=== PATIENT | female | born 1945 | race Caucasian/White ===

== ENCOUNTER 2019-12-09 04:27 | Inpatient (IN) | payer MEDICARE, SELFPAY ==
[2019-12-09] VITALS (20 sets, daily range): BP systolic 107–184; BP diastolic 56–88; PULSE 58–78; RESP 10–22; TEMP 36.1–37.1; O2SAT 97–100; BMI 43.7
--- NOTE | 2019-12-09 | ECHO_ITS ---
Patient Info Name: Tracey Beasley Age: 74 years : 1945 Gender: Female Ht: 61 in Wt: 231 lbs BSA: 2.19 m2 HR: 68 bpm BP: 147 / 60 mmHg Heart Rhythm: Sinus Rhythm Technical Quality: Good Exam Date: 12/09/2019 10:31 AM Exam Location: [facility] Pulmonary Exam Room: [facility] Patient Status: Inpatient Admit Date: 12/09/2019 Staff Ordering Physician: Van Guzman MD Regional Director: Velma Madden RDCS Attending Provider: Van Guzman MD Exam Type: CA echo doppler color flow Study Info Indications - chest pain sob ami s/p cath Complete two-dimensional, color flow and Doppler transthoracic echocardiogram is performed. Summary 1. Left ventricular systolic function is normal, estimated at 60-65%. 2. Left ventricular septal wall motion is grossly normal, however endocardial definition is limited. 3. Right ventricular chamber dimension is normal. 4. Left atrial chamber dimension is severely enlarged. 5. There is mild to moderate mitral valve regurgitation. 6. The mitral valve annulus is severely calcified. 7. Moderate pulmonary hypertension, estimated pulmonary arterial systolic pressure is 46 mmHg. Left Ventricle Left ventricular chamber dimension is normal. Left ventricular systolic function is normal, estimated at 60-65%. There is no increased left ventricular wall thickness. Left ventricular septal wall motion is grossly normal, however endocardial definition is limited. The left ventricular diastolic function is abnormal. Right Ventricle Right ventricular chamber dimension is normal. Right ventricular systolic function is normal. Left Atria Left atrial chamber dimension is severely enlarged. Right Atria Right atrial chamber dimension is enlarged. Aortic Valve The aortic valve is trileaflet. There is no aortic valve sclerosis. There is no aortic valve stenosis. There is no aortic valve regurgitation. Pulmonic Valve The pulmonic valve is normal. There is no pulmonic valve stenosis. There is no pulmonic regurgitation. Mitral Valve The mitral valve has thickened leaflets. There is no mitral valve stenosis. There is mild to moderate mitral valve regurgitation. The mitral valve annulus is severely calcified. Tricuspid Valve The tricuspid valve leaflets are normal. There is no significant tricuspid valve stenosis. There is mild tricuspid valve regurgitation. Moderate pulmonary hypertension, estimated pulmonary arterial systolic pressure is 46 mmHg. Pericardium/Pleural There is no pericardial effusion. Inferior Vena Cava Normal inferior vena cava with >50% collapse upon inspiration consistent with normal right atrial pressure, 5 mmHg. Aorta The aortic root size at the sinus of Valsalva is normal. The prox ascending aorta size is normal. Left Ventricular Outflow Tract Name Value Normal LVOT 2D LVOT Diameter 2.0 cm LVOT Doppler LVOT Peak Gradient 6 mmHg LVOT Mean Gradient 4 mmHg LVOT VTI 27 cm LVOT VTI/AV VTI Ratio 0.8 LVOT
--- NOTE | ~2019-12-09 | XR_ITS ---
EXAMINATION: XR chest 1V portable DATE: 12/09/2019 04:48 INDICATION: Chest pain radiating to left shoulder. TECHNIQUE: A single frontal view of the chest was obtained. COMPARISON: Chest 2 views 12/24/2016, CT abdomen and pelvis 02/26/2019 FINDINGS: The chest demonstrates clear lungs without pneumonia, pleural effusion, or pneumothorax. Th e heart size is normal. IMPRESSION: 1. No acute cardiopulmonary disease. Reviewed, dictated and finalized at location A. R MACHINE HELPER
--- NOTE | 2019-12-09 04:35 | PC.NURSE ---
Pt took 4 81mg aspirin at home when symptoms started.
--- NOTE | 2019-12-09 04:37 | ED.CHESTPAIN ---
HPI - Chest Pain General Chief Complaint: Chest Pain Stated Complaint: chest pain History of Present Illness HPI narrative: Awoke from sleep around 0315 this morning with severe pain in the right shoulder radiating into the chest. It was pressure like pain. It was associated with SOB. She has had a previous UT which caused similar symptoms. SHe took 325 of aspirin at home prior to calling EMS. EMS obtained an EKG with ST elevations in the inferior leads and called a STEMI. On arrival to the ED the EKG was repeated. There was no longer significant ST elevation. The EKG was discussed with the on-call interventionalist. He suggested not taking the patient to the filling station laborer until he is able to evaluate her. Related Data Allergies Allergy/AdvReac Type Severity Reaction Status Date / Time Cephalosporins Allergy Severe Rash----KEF Unverified 12/24/16 19:04 DYLAN morphine Allergy Severe ITCHEY Verified 12/24/16 19:04 FLUSHED SKIN cephalexin Allergy Unknown Verified 08/28/19 14:55 Sulfa (Sulfonamide Allergy Unknown Verified 08/28/19 14:55 Antibiotics) Review of Systems Review of Systems: All systems reviewed & are unremarkable except as noted in HPI and below Constitutional: Constitutional: Denies fever(s) Eyes: Eyes: Denies change in vision Cardiovascular: Cardiovascular: Reports chest pain and Reports radiating jaw, neck or arm pain Respiratory: Respiratory: Reports dyspnea Gastrointestinal: Gastrointestinal: Denies abdominal pain and Denies nausea Neurologic: Denies dizziness PMFSH Past Medical History Medical History (Updated 12/09/19 @ 05:50 by Mandeep Flores MD) Myocardial infarction Family History Family History Other Carcinoma of colon Cerebrovascular accident Diabetes mellitus Family history of coronary artery disease Family history of malignant neoplasm of breast in first degree relative Hypertension Social History Social History Smoking status: Never smoker Second hand tobacco smoke exposure: No Alcohol intake: never Gender identity (if verbalized by the patient): Female Exam Const: General: no acute distress and alert Nutritional Appearance: obese Orientation/consciousness: patient oriented x3 HENMT: Head: normal to inspection Resp: Effort & Inspection: normal respiratory effort Auscultation: clear to auscultation bilaterally Cardio: Rate: regular rate Rhythm: regular rhythm GI: Other: Soft NT Skin: General skin exam: normal color Rashes: no rashes Neuro: General: patient oriented x3 Speech: normal speech and Abnormal speech present Course Reevaluation(s) Reevaluation #1: The interventionalist has seen the patient and will plan to take her to the filling station laborer now. Date: 12/09/19 Time: 05:48 Vital Signs Vital signs: Vital Signs Temperature 36.7 C 12/09/19 04:29 Pulse Rate 74 12/09/19 04:29 Respiratory Rate 16 12/09/19 04:29 Blood Pressure 184/79 H 12/09/19 04:29 Pulse Oximetry 100 12/09/19 04:29 Temperature 36.7 C 12/09/19 04:29 Pulse Rate 69 12/09/19 05:45 Respiratory Rate 18 12/09/19 05:45 Blood Pressure 147/60 H 12/09/19 05:45 Pulse Oximetry 98 12/09/19 05:45 MDM - Chest Pain Lab Data Result diagrams: 12/09/19 04:49 12/09/19 04:49 Labs: Lab Results 12/09/19 12/09/19 12/09/19 Range/Units 04:49 04:49 04:49 WBC 9.6 (4.5-10.0) K/mm3 RBC 5.22 (4.2-5.4) M/mm3 Hgb 12.9 (12.0-15.0) g/dL Hct 41.6 (37.0-47.0) % MCV 79.7 L (80-100) fl MCH 24.7 L (26-34) pg MCHC 31.0 L (32-36) g/dl RDW 15.3 H (11.5-14.5) % Plt Count 189 (150-375) k/mm3 MPV 10.9 H (7.4-10.4) fl Immature Gran % (Auto) 0.6 H (0-0.5) % Neut % (Auto) 50.9 (45.5-73.1) % Lymph % (Auto) 37.4 (18.3-44.2) % [place] % (Auto) 8.7 H (2.6-8.5)
--- NOTE | 2019-12-09 04:38 | ECG_ITS ---
Measurements Intervals [place] Rate: 63 P: -18 VT: 125 QRS: -4 QRSD: 81 T: 16 QT: 380 QTc: 392 Interpretive Statements SINUS RHYTHM SUBTLE INFERIOR ST ELEVATION MYOCARDIAL INFARCT- ACUTE BASELINE ARTIFACT- I, II, III, AVR, AVL, AVF ABNORMAL ECG Electronically Signed On 12-09-2019 8:27:59 BILINGUAL ELEMENTARY SCHOOL TEACHER by Armando Francis D.O.
[2019-12-09 04:58] LABS: Basophils Percent Auto 0.4 % (0.2-1.2); Eosinophils Absolute Auto 0.2 K/mm3 (0-0.3); Hematocrit 41.6 % (37.0-47.0); Hemoglobin 12.9 g/dL (12.0-15.0); Immature Granulocyte Absolute 0.06 K/mm3 (0.00-0.031); Immature Granulocyte Percent A 0.6 % (0-0.5); Lymphocytes Absolute Auto 3.58 K/mm3 (0.9-3.2); Lymphocytes Percent Auto 37.4 % (18.3-44.2); Mean Corpuscular Hemoglobin 24.7 pg (26-34); Mean Corpuscular Volume 79.7 fl (80-100); Mean Platelet Volume 10.9 fl (7.4-10.4); Monocytes Absolute Auto 0.8 K/mm3 (0.1-0.6); Monocytes Percent Auto 8.7 % (2.6-8.5); Neutrophils Absolute Auto 4.9 K/mm3 (1.3-6.7); Neutrophils Percent Auto 50.9 % (45.5-73.1); Platelet Count Result 189 k/mm3 (150-375); Red Blood Count 5.22 M/mm3 (4.2-5.4); Red Cell Distribution Width 15.3 % (11.5-14.5); White Blood Count 9.6 K/mm3 (4.5-10.0)
[2019-12-09] MEDS: NITROGLYCERIN SL 0.4 MG TABLET SUBLINGUAL (05:03)
--- NOTE | 2019-12-09 05:06 | PC.NURSE ---
Director Medicaid RN here at this time. Pt groin shaved and pads aplied to pt chest. Pt resting comfortably.
[2019-12-09 05:12] LABS: Blood Urea Nitrogen 30 mg/dL (7-17); Calcium 9.1 mg/dL (8.4-10.2); Carbon Dioxide 22 mmol/L (22-30); Chloride 101 mmol/L (98-107); Estimated Glomerular Filt Rate > 60; Glucose 128 mg/dL (65-105); Potassium 3.9 mmol/L (3.4-5.0); Sodium 134 mmol/L (137-145)
[2019-12-09 05:21] LABS: INR 0.9; Partial Thromboplastin Time 26.7 SECONDS (22.3-36.8); Prothrombin Time 11.9 Seconds (11.1-14.7)
[2019-12-09 05:32] LABS: Troponin I 0.122 ng/mL (0.000-0.034)
--- NOTE | 2019-12-09 05:45 | PC.NURSE ---
Filter Tank Tender Helper Head at bedside. States they will take her to dental lab technician. Pt and pt in agreement.
--- NOTE | 2019-12-09 05:59 | PM.CNCAR ---
Assessment and Plan Additional Plan Acute chest pain, NSTEMI, EKG with ST depression in ant leads and minimal elevation in INF leads, improved with NTG but still residual mild pain, giving dynamic EKG changes, decision to proceed with [facility], plan Heparin, ASA, Emergency [facility] History of Present Illness History of Present Illness Consult date/time: 12/09/19 05:59 Consult reason: chest pain Reason For Visit: chest pain Narrative: Acute left side pressure like chest pain, radiates to left shoulder, started at 3:15 AM and was 9/10, improved partially with NTG, NO precipitating factors, associated with SOB at rest. Review of Systems Review of Systems: All systems reviewed & are unremarkable except as noted in HPI and below PMFSH Past Medical History Medical History (Updated 12/09/19 @ 05:50 by Mandeep Flores MD) Myocardial infarction Family History Family History Other Carcinoma of colon Cerebrovascular accident Diabetes mellitus Family history of coronary artery disease Family history of malignant neoplasm of breast in first degree relative Hypertension Social History Social History Smoking status: Never smoker Second hand tobacco smoke exposure: No Alcohol intake: never Gender identity (if verbalized by the patient): Female Meds Home Medications and Allergies Home Medications Medication Instructions Recorded Confirmed Type metoprolol succinate 25 mg 25 mg PO DAILY #90 tablet 10/02/19 Rx tablet,extended release 24 hr simvastatin 40 mg tablet 40 mg PO DAILY #90 tablet 10/23/19 Rx Allergies Allergy/AdvReac Type Severity Reaction Status Date / Time Cephalosporins Allergy Severe Rash----KEF Unverified 12/24/16 19:04 DYLAN morphine Allergy Severe ITCHEY Verified 12/24/16 19:04 FLUSHED SKIN cephalexin Allergy Unknown Verified 08/28/19 14:55 Sulfa (Sulfonamide Allergy Unknown Verified 08/28/19 14:55 Antibiotics) Vital Signs Vital Signs - 24 hr 12/09/19 04:29 12/09/19 04:34 12/09/19 05:32 Temperature 36.7 C Pulse Rate 74 78 58 L Respiratory Rate 16 15 Blood Pressure 184/79 H 147/60 H Pulse Oximetry 100 99 12/09/19 05:45 Temperature Pulse Rate 69 Respiratory Rate 18 Blood Pressure 147/60 H Pulse Oximetry 98 Exam Const: General: comfortable and no acute distress Other: Able to lie flat HENMT: General nose exam: Normal nares present and no epistaxis Mouth: Yes moist mucous membranes Eyes: Sclera: sclerae normal Pupils: Equal, round and reactive pupils present Neck: Neck: supple and no JVD Carotids: no bruits Resp: Auscultation: clear to auscultation bilaterally and lung sounds not diminished Other: No chest wall tenderness Cardio: Rate: regular rate Rhythm: regular rhythm Heart sounds: no gallops, no murmurs and no rubs GI: GI Palp: Yes Soft to palpation and No Tenderness to palpation present (GI) Auscultation: normal bowel sounds Skin: General skin exam: normal color, rashes and/or lesions noted and no erythema Other: Warm Neuro: Cranial nerves: Yes Equal, round and reactive pupils present Speech: normal speech Motor exam (neuro): Normal motor muscle tone present throughout Other: No obvious focal deficit or facial asymmetry Extrem: General: no edema Right upper extremity: normal capillary refill and no joint enlargement Left upper extremity: normal capillary refill and no joint enlargement Right lower extremity: normal capillary refill and no joint enlargement Left lower extremity: normal capillary refill and no joint enlargement Other: Normal capillary refills Intact distal pulses. Psych: Mental Status: mental status grossly normal Affect: normal affect Results Labs and Meds Result diagrams: 12/09/19 04:49 12/09/19 04:49 Lab results: Cardiac Enzymes 12/09/19 Range/Unit
--- NOTE | 2019-12-09 06:27 | WPDCARDPROC ---
Cardiac Cath Procedure Note Date of procedure:: 12/09/19 Performing physician:: Van Guzman MD Procedure Procedure note:: INDICATION: 1. NSTEMI HISTORY Patient presented with acute sever chest pain, EKG showed dynamic EKG changes PROCEDURES 1. Coronary angiogram 2. [facility] ACCESS SITE Rt radial PROCEDURE DETAILS Consent obtained and time out done. Access site prepped and draped in sterile fashion. Moderate sedation given with versed and fentanyl and tolerated well, versed 0.5 mg and fentanyl 50 mcg, start 6:08 and end 6:23. fully conscious at end ofprocedure. Access obtained with modified Seldinger technique with no difficulty. Coronary angiogram was recorded using TIG 4 catheter in different angels C was done with TIG4 catheter HEMODYNAMIC FINDINGS LV EDP 18 No gradient across AV ANGIOGRAPHIC FINDINGS 1. Left main: normal, free of obstructive disease, gives LAD and LCX 2. LAD: No significant disease, give one intermediate size and several small Diagonal branches 3. LCX: Non dominant and gives 3 intermediate size OM (OM2, OM3 ad OM4/LPL. OM3 is tortious and has distal 100% occlusion likely culprit lesion of NSTEMI. 4. RCA: Dominant vessel gives rPDA and rPL. RCA and its branches are free of obstructive disease COMPLICATION: None Estimated blood loss: 10 ml patient tolerated procedure well, asymptomatic at end of procedure, awake, intact pulses and following commands CONCLUSION Acute total occlusion of distal OM3 Culprit lesion of NSTEMI Otherwise non obstructive disease RECOMMENDATION DAPT for at least one year Medical managment of CAD since lesion is very distal in intermediate size tortious vessel and patient was chest pain free at end of procedure. heparin for 48 hours.
--- NOTE | 2019-12-09 06:34 | ECG_ITS ---
Measurements Intervals [place] Rate: 72 P: 39 [place]: 122 QRS: -2 QRSD: 94 T: 32 QT: 371 QTc: 408 Interpretive Statements SINUS RHYTHM SUBTLE ST ELEVATION IN INFERIOR LEADS- CONSIDER ACUTE INJURY MINIMAL ST DEPRESSION IN HIGH LATERAL LEADS ABNORMAL ECG Electronically Signed On 12-09-2019 8:29:31 SLUBBER OPERATOR by Armando Francis D.O.
--- NOTE | 2019-12-09 07:04 | ADMGEN ---
This patient, Tracey Beasley, was admitted to Intensive Care Unit-8 at 0645. Patient/family oriented to hospital policies and general routines including ID bracelet, bed and alarms, visiting hours, pain management, procedures, bathroom and other care routines, personal items, smoking policy, room service/diet, and visiting hours. Valuables list has been completed. Information on how to activate the Rapid Response Team has been discussed. Patient/Family are encouraged to report perceived risks to care and to ask questions if they do not understand what they are told or what they should do.
[2019-12-09 08:10] LABS: Basophils Percent Auto 0.4 % (0.2-1.2); Eosinophils Absolute Auto 0.1 K/mm3 (0-0.3); Eosinophils Percent Auto 0.8 % (0-4.4); Hematocrit 37.9 % (37.0-47.0); Hemoglobin 12.2 g/dL (12.0-15.0); Immature Granulocyte Absolute 0.07 K/mm3 (0.00-0.031); Immature Granulocyte Percent A 0.8 % (0-0.5); Lymphocytes Absolute Auto 1.77 K/mm3 (0.9-3.2); Lymphocytes Percent Auto 19.5 % (18.3-44.2); Mean Corpuscular HGB Conc 32.2 g/dl (32-36); Mean Corpuscular Hemoglobin 25.3 pg (26-34); Mean Corpuscular Volume 78.6 fl (80-100); Mean Platelet Volume 11.8 fl (7.4-10.4); Monocytes Absolute Auto 0.6 K/mm3 (0.1-0.6); Monocytes Percent Auto 6.6 % (2.6-8.5); Neutrophils Absolute Auto 6.5 K/mm3 (1.3-6.7); Neutrophils Percent Auto 71.9 % (45.5-73.1); Platelet Count Result 172 k/mm3 (150-375); Red Blood Count 4.82 M/mm3 (4.2-5.4); Red Cell Distribution Width 15.2 % (11.5-14.5); White Blood Count 9.1 K/mm3 (4.5-10.0)
[2019-12-09 08:20] LABS: INR 1.1; Prothrombin Time 13.5 Seconds (11.1-14.7)
[2019-12-09 08:35] LABS: Troponin I 0.682 ng/mL (0.000-0.034)
[2019-12-09] MEDS: HEPARIN SOD/D5W 100 UNITS/ML 25,000 UNITS/250 ML BAG 9 UNITS IV CONT (08:44)
[2019-12-09 08:47] LABS: Partial Thromboplastin Time 186.5 SECONDS (22.3-36.8)
[2019-12-09] MEDS: ATORVASTATIN 40 MG TABLET 80 MG PO (11:49)
[2019-12-09] MEDS: METOPROLOL SUCCINATE EXT REL 50 MG TABCR PO (11:50)
[2019-12-09] MEDS: ASPIRIN 81 MG ENTERIC TABLET PO (11:50)
[2019-12-09] MEDS: ISOSORBIDE MONONITRATE 15 MG TAB.ER.24H PO (11:50)
[2019-12-09] MEDS: PANTOPRAZOLE 40 MG TABLET PO (11:51)
--- NOTE | 2019-12-09 12:31 | WPDCNINT ---
Assessment and Plan Assessment and plan (1) ST elevation AK (STEMI): Qualifiers: Involved coronary artery: unspecified coronary artery Qualified Code(s): I21.3 - ST elevation (STEMI) myocardial infarction of unspecified site Code(s): I21.3 - ST elevation (STEMI) myocardial infarction of unspecified site Status: Acute Assessment and Plan: patient with ST-elevation AK, status post left heart catheterization, went 3 was torturous with 100% occlusion, unable to perform any intervention. Patient be treated medically with dual antiplatelet therapy. - Currently on heparin infusion - continue statin, metoprolol, aspirin, clopidogrel, Imdur (2) Acute coronary syndrome: Code(s): I24.9 - Acute ischemic heart disease, unspecified Status: Acute Assessment and Plan: patient has a history of AK - continue meds as above Additional Plan discussed with patient and family at bedside updated them with patient's condition and plan of care. I answered all questions code status: Full code Critical care time spent: 37 minutes Due to a high probability of clinically significant, life threatening deterioration, the patient required my highest level of preparedness to intervene emergently and I personally spent this critical care time directly and personally managing the patient. This critical care time included obtaining a history; examining the patient; pulse oximetry; ordering and review of studies; arranging urgent treatment with development of a management plan; evaluation of patient's response to treatment; frequent reassessment; and discussions with other providers. It was exclusive of separately billable procedures and treating other patients and teaching time. Please see Assessment and Plan section and the rest of the note for further information on patient assessment and treatment Sustainable Landscape Architect Consult Note Consult date: 12/09/19 Time Seen: 07:22 Reason for consult: STEMI status post cardiac catheterization HPI: Tracey Beasley is a 74 year old female with past medical history myocardial infarction presented the ED sweatband flanger on 12/09/2019 with complains of left-sided chest pressure radiating the left shoulder. And also complained of shortness of breath at rest patient did take nitroglycerin and aspirin with mild improvement. initial EKGs on site with EMS showed ST-elevation. EKG in the ED showed ST depression in anterior leads with minimal elevation in the inferior leads. Cardiology evaluated the patient, at that time she continued to have chest pain. Given her EKG changes patient was taken to the laborer car barn for left heart catheterization. cardiac catheterization showed left circumflex with 3 intermediate size OM, warm 3 is torturous and was 100% occluded distally which likely was the culprit lesion. No intervention could be performed due to the distal occlusion and the artery being small and tortuous. Patient was placed on heparin infusion, started on dual antiplatelet therapy transferred to the ICU for further management. Patient seen and examined the ICU, is awake, alert, oriented x3. Patient states her shoulder pain has resolved, continues to have mild chest pain. Patient is on heparin infusion. She had a right radial approach left heart catheterization. Patient is hemodynamically stable. At this time denies any shortness of breath nausea, vomiting, palpitations, lightheadedness Review of Systems Review of Systems: All systems reviewed & are unremarkable except as noted in HPI and below PMFSH Past Medical History Medical History (Updated 12/09/19 @ 12:38 by Amanda Tim MD) Myocardial infarction Family History Family History Other Carcinoma of colon Cerebrovascular accident Diabetes mellitus Family history of coronary artery disease Family history of malignant neoplasm of breast in first degree relative
[2019-12-09 15:08] LABS: Partial Thromboplastin Time 70.1 SECONDS (22.3-36.8)
[2019-12-09] MEDS: HEPARIN SODIUM 5,000 UNITS/ML VIAL 3000 UNITS IV PUSH (18:36)
[2019-12-10] VITALS (16 sets, daily range): BP systolic 142–153; BP diastolic 58–81; PULSE 63–95; RESP 14–24; TEMP 36.3–37; O2SAT 94–99
[2019-12-10 00:10] LABS: Partial Thromboplastin Time 112.9 SECONDS (22.3-36.8)
[2019-12-10 06:46] LABS: Basophils Percent Auto 0.2 % (0.2-1.2); Blood Urea Nitrogen 20 mg/dL (7-17); Calcium 8.6 mg/dL (8.4-10.2); Carbon Dioxide 24 mmol/L (22-30); Chloride 105 mmol/L (98-107); Eosinophils Absolute Auto 0.2 K/mm3 (0-0.3); Eosinophils Percent Auto 1.8 % (0-4.4); Estimated CRCL calculation 68 ml/min; Estimated Glomerular Filt Rate > 60; Glucose 113 mg/dL (65-105); Hematocrit 36.1 % (37.0-47.0); Hemoglobin 11.5 g/dL (12.0-15.0); Immature Granulocyte Absolute 0.06 K/mm3 (0.00-0.031); Immature Granulocyte Percent A 0.7 % (0-0.5); Lymphocytes Absolute Auto 2.25 K/mm3 (0.9-3.2); Lymphocytes Percent Auto 26.8 % (18.3-44.2); Magnesium 1.7 mg/dL (1.6-2.3); Mean Corpuscular HGB Conc 31.9 g/dl (32-36); Mean Corpuscular Hemoglobin 25.2 pg (26-34); Mean Corpuscular Volume 79.2 fl (80-100); Mean Platelet Volume 11.3 fl (7.4-10.4); Monocytes Absolute Auto 0.7 K/mm3 (0.1-0.6); Monocytes Percent Auto 8.8 % (2.6-8.5); Neutrophils Absolute Auto 5.2 K/mm3 (1.3-6.7); Neutrophils Percent Auto 61.7 % (45.5-73.1); Phosphorus 3.6 mg/dL (2.5-4.5); Platelet Count Result 165 k/mm3 (150-375); Potassium 3.9 mmol/L (3.4-5.0); Red Blood Count 4.56 M/mm3 (4.2-5.4); Red Cell Distribution Width 15.4 % (11.5-14.5); Sodium 138 mmol/L (137-145); White Blood Count 8.4 K/mm3 (4.5-10.0)
[2019-12-10 06:47] LABS: Partial Thromboplastin Time 92.1 SECONDS (22.3-36.8)
[2019-12-10 08:10] LABS: Activated Clotting Time 224 sec (74-137)
--- NOTE | 2019-12-10 08:53 | ECG_ITS ---
Measurements Intervals [place] Rate: 72 P: 4 [place]: 130 QRS: -6 QRSD: 86 T: -6 QT: 363 QTc: 397 Interpretive Statements SINUS RHYTHM MINIMAL INFERIOR ST ELEVATION IN INFERIOR LEADS- PROBABLY RECENT INFARCT ABNORMAL ECG Electronically Signed On 12-10-2019 14:17:24 MORTGAGE PROFESSIONAL by Armando Francis D.O.
[2019-12-10] MEDS: CLOPIDOGREL BISULFATE 75 MG TABLET PO (08:56)
[2019-12-10] MEDS: METOPROLOL SUCCINATE EXT REL 50 MG TABCR PO (08:56)
[2019-12-10] MEDS: PANTOPRAZOLE 40 MG TABLET PO (08:57)
[2019-12-10] MEDS: ISOSORBIDE MONONITRATE 15 MG TAB.ER.24H PO (08:57)
--- NOTE | 2019-12-10 12:02 | PM.PNCARD ---
Progress Note: A&P Additional Plan NSTEMI, distal OM occlusion not amenable for intervention, otherwise non obstructive CAD, dyslipidmeia, HTN (not optimally controlled), Normal EF Plan add lisinopril 20 mg daily, cont ASA, plavix, statin, PPI, B-latrice and heparin for 48 hours (complete late tomorrow morning), Transfer to floor Subjective Date/time seen: 12/10/19 12:02 Interval history: no acute events No arrhythmia Review of Systems Review of Systems: Narrative: General: good sleep last night, no chills or fevers Cardiac: No chest pain or palpitations or dizziness/syncope Respiratory: No SOB or cough Abdomen: Good appetite, no nausea or vomiting or diarrhea Hematologic: No bleeding or easy bruises Neurologic: No focal weakness or numbness Other complaints: None Exam Narrative: Exam Narrative: General: able to lie flat, no acute distress Respiratory: No chest wall tenderness, equal air entry and expansion, CTAB Cardiovascular: The heart has a regular rate and rhythm without murmur, No JVD. Lower extremities: No lower extremity edema. Warm, no skin lesion or bruises. Good capillary refill. Gastrointestinal: The abdomen is soft, nontender and nondistended with active bowel sounds. Psychiatric: Normal affect and co-operative Neurologic: Alert and oriented. No focal deficits. Speech is clear. No facial drooping. Objective Data Vital Signs Vital Signs: Vital Signs - 24 hr 12/09/19 14:00 12/09/19 16:00 12/09/19 18:00 Temperature 36.7 C Pulse Rate 64 58 L 63 Respiratory Rate 13 Blood Pressure 131/58 L Pulse Oximetry 97 12/09/19 20:00 12/09/19 22:00 12/10/19 00:00 Temperature 37.1 C 37.0 C Pulse Rate 71 63 75 Respiratory Rate 22 H 20 Blood Pressure 152/74 H 150/67 H Pulse Oximetry 98 98 12/10/19 02:00 12/10/19 04:00 12/10/19 06:00 Temperature 37.0 C Pulse Rate 68 66 64 Respiratory Rate 20 Blood Pressure 149/70 H Pulse Oximetry 98 12/10/19 08:00 12/10/19 08:07 12/10/19 08:56 Temperature 36.5 C Pulse Rate 69 67 73 Respiratory Rate 14 Blood Pressure 152/69 H Pulse Oximetry 96 Intake/Output Intake/Output: Intake & Output 12/07/19 12/08/19 12/09/19 12/10/19 23:59 23:59 23:59 23:59 Intake Total 860 356 Output Total 525 1000 Balance 335 -644 Meds/Results Medications: Active Medications Generic Name Dose Route Start Last Admin Trade Name Freq PRN Reason Stop Dose Admin Clopidogrel Bisulfate 75 mg 12/10/19 09:00 12/10/19 08:56 Plavix PO 75 mg QAM NATHALIA Administration Heparin Sodium (Porcine) 4,000 units 12/09/19 06:40 Heparin Sodium IV PUSH PRN PRN aPTT less than 55 seconds Heparin Sodium (Porcine) 3,000 units 12/09/19 06:40 12/09/19 18:36 Heparin Sodium IV PUSH 3,000 units PRN PRN Administration aPTT 55 - 70 seconds Heparin Sodium/Dextrose 25,000 units in 250 mls @ 9 mls/hr 12/09/19 07:00 12/10/19 06:50 Heparin Sodium/D5w 100 Units/Ml IV CONT 900 units/hr .Q24H NATHALIA 9 mls/hr Titration Protocol 900 UNITS/HR Isosorbide Mononitrate 15 mg 12/09/19 09:00 12/10/19 08:57 Imdur PO 15 mg QAM NATHALIA Administration Metoprolol Succinate 50 mg 12/09/19 09:00 12/10/19 08:56 Toprol Xl PO 50 mg QAM NATHALIA Administration Nitroglycerin 0.4 mg 12/09/19 06:34 Nitrostat Subl 0.4 Mg (1/150) SUBLINGUAL Q5MIN PRN Chest Pain Pantoprazole Sodium 40 mg 12/09/19 09:00 12/10/19 08:57 Protonix PO 40 mg QAM NATHALIA Administration Radiology Results: ITS Impressions Chest X-Ray 12/09/19 08:47 IMPRESSION: 1. No acute cardiopulmonary disease. Labs Labs: Laboratory Results - last 24 hr 12/09/19 12/09/19 12/09/19 06:32 11:53 14:32 WBC RBC Hgb Hct MCV MCH MCHC RDW Plt Count MPV Immature Gran % (Auto) Neut % (Auto) Lymph % (Auto) [place] % (Auto) Eos % (Auto) Baso % (Auto)
[2019-12-10] MEDS: HEPARIN SODIUM 5,000 UNITS/ML VIAL 4000 UNITS IV PUSH (12:33)
[2019-12-10] MEDS: HEPARIN SOD/D5W 100 UNITS/ML 25,000 UNITS/250 ML BAG 12 UNITS IV CONT (12:42)
[2019-12-10] MEDS: ATORVASTATIN 40 MG TABLET 80 MG PO (12:51)
[2019-12-10] MEDS: lisinopriL 20 MG TABLET PO (12:51)
[2019-12-10 13:28] LABS: Cholesterol 150 mg/dL (0-200); HDL Direct 42 mg/dL; Triglycerides 205 mg/dL (<150)
[2019-12-10 13:39] LABS: LDL Cholesterol Direct 84 mg/dL
[2019-12-10 19:06] LABS: Partial Thromboplastin Time 148.4 SECONDS (22.3-36.8)
[2019-12-11] VITALS (9 sets, daily range): BP systolic 137–176; BP diastolic 68–84; PULSE 68–101; RESP 18–20; TEMP 36.2–36.7; O2SAT 97–98
[2019-12-11 03:35] LABS: Partial Thromboplastin Time 80.9 SECONDS (22.3-36.8)
[2019-12-11 09:29] LABS: Partial Thromboplastin Time 75.2 SECONDS (22.3-36.8)
--- NOTE | 2019-12-11 10:37 | PCCPR ---
visited pt inpt to discuss Cardiac Rehab
--- NOTE | 2019-12-11 11:00 | PM.DS ---
DS: Diagnosis Admitting Diagnosis Admitting Diagnosis: Non ST-elevation myocardial infarction Discharge Diagnosis (1) Acute coronary syndrome: Code(s): I24.9 - Acute ischemic heart disease, unspecified Status: Acute Assessment and Plan: Non ST-elevation myocardial infarction. She presented with acute severe chest pain. EKG showed dynamic EKG changes. Cardiac catheterization 12/09/2019: Acute total occlusion of the distal OM3. Otherwise nonobstructive disease. As the lesion is very distal in an intermediate size torturous vessel medical management was recommended. No intervention was performed. Troponin peak 4.050. Remains pain-free ambulating in the room. Right radial site without swelling. Fingers are warm. A refill brisk. Radial and ulnar pulses intact (2) Hypertension: Code(s): I10 - Essential (primary) hypertension Status: Acute Assessment and Plan: Blood pressures fluctuated when she was in the hospital. She may need some more adjustments on her medications as an outpatient for better blood pressure control. DS: Summary Hospital Course Reason for hospitalization: Chest pain Hospital Course: 74-year-old female presented to the hospital with chest pain. She dynamic EKG changes and continued chest pain. She was taken to cardiac catheterization lab on 12/09/2019 with the significant findings of distal obtuse marginal occlusion not amenable for intervention. She was pain-free at the end of the procedure. Otherwise she had no obstructive coronary artery disease. Blood pressure was elevated. She had a normal ejection fraction. Lisinopril was started. She was continued on aspirin, Plavix, statin, PPI, beta-latrice and heparin drip for 48 hours. On the day of discharge she was ambulating in her room. She had no chest discomfort or shortness of breath. Right radial site was without swelling or bleeding. Radial and ulnar pulses were intact. Fingers were warm with brisk capillary refill. She was discharged home in stable and pain-free condition. Status at Discharge Functional status at discharge: independent ambulation Overall status at discharge: patient is back to baseline Time Spent with Patient Time attestation: Total time spent providing and/or coordinating discharge services: 35 minutes Time spent: Greater than 30 minutes Exam Const: General: comfortable and no acute distress Other: Able to lie flat HENMT: General nose exam: Normal nares present and no epistaxis Mouth: Yes moist mucous membranes Eyes: Sclera: sclerae normal Pupils: Equal, round and reactive pupils present Neck: Neck: supple and no JVD Resp: Auscultation: clear to auscultation bilaterally Other: No chest wall tenderness Cardio: Rate: regular rate Rhythm: regular rhythm Heart sounds: no gallops, no murmurs and no rubs GI: Auscultation: normal bowel sounds Skin: General skin exam: normal color, rashes and/or lesions noted and no erythema Neuro: Cranial nerves: Yes Equal, round and reactive pupils present Speech: normal speech Motor exam (neuro): Normal motor muscle tone present throughout Extrem: General: no edema Right upper extremity: normal capillary refill and no joint enlargement Left upper extremity: normal capillary refill and no joint enlargement Right lower extremity: normal capillary refill and no joint enlargement Left lower extremity: normal capillary refill and no joint enlargement Other: Psych: Mental Status: mental status grossly normal Affect: normal affect DS: Data Data Completed and Pending Labs on day of discharge: Labs from last 24 hours 12/11/19 12/11/19 12/10/19 09:04 03:10 18:42 APTT 75.2 H 80.9 H 148.4 H Troponin I Triglycerides Cholesterol LDL Cholesterol Direct HDL Direct 12/10/19 12/10/19 12/10/19 12:58 12:58 11:06 APTT 52.0 H Troponin I 3.670 H* Triglycerides 205
[2019-12-11] MEDS: METOPROLOL SUCCINATE EXT REL 50 MG TABCR PO (12:00)
[2019-12-11] MEDS: ISOSORBIDE MONONITRATE 15 MG TAB.ER.24H PO (12:00)
[2019-12-11] MEDS: ATORVASTATIN 40 MG TABLET 80 MG PO (12:00)
[2019-12-11] MEDS: CLOPIDOGREL BISULFATE 75 MG TABLET PO (12:00)
[2019-12-11] MEDS: ASPIRIN 81 MG ENTERIC TABLET PO (12:01)
[2019-12-11] MEDS: PANTOPRAZOLE 40 MG TABLET PO (12:01)
[2019-12-11] MEDS: lisinopriL 20 MG TABLET PO (12:01)
== END 2019-12-11 13:10 | disposition home or self-care (01) | DRG 282 ==
LOC: ANHED 05:52 → ANHICU 06:02 → ANHIMU 12-11 11:10 → ANHICU 12-14 10:03 → ANHIMU 12-14 10:03
PROVIDERS: Internal Medicine; Admitting Provider Internal Medicine Interventional Cardiology; Emergency Provider Emergency Medicine; PCP Family Medicine; Visit Provider Internal Medicine Interventional Cardiology
PROC: 4A023N7 Measurement of Cardiac Sampling and Pressure, Left Heart, Percutaneous Approach (ICD-10-PCS; CPT 93452; principal; 2019-12-09 04:50)
DX: I21.3 ST elevation (STEMI) myocardial infarction of unspecified site (principal); I10 Essential (primary) hypertension; E78.5 Hyperlipidemia, unspecified; E11.9 Type 2 diabetes mellitus without complications; Z85.038 Personal history of other malignant neoplasm of large intestine
CPT/HCPCS: 36415; 71045; 80048; 80061; 83735; 84100; 84484; 85025; 85610; 85730; 87081; 93005; 93306; 93458; 99285; A9270; C1887; C1894; J1644; J2250; J3010; J7040

== ENCOUNTER 2020-01-22 10:00 | Outpatient (RCR) | payer MEDICARE, SELFPAY ==
[2020-01-16 09:27] VITALS: PULSE 60
--- NOTE | 2020-01-23 15:11 | PCCPR ---
Tracey called today with concern and questioning whether to come in and exercise due to coronavirus outbreak. Tracey encouraged to contact Dr. Porter's office regarding her risk and need to resume cardiac rehab. She said she would do so but does plan to be out the rest of this week.
--- NOTE | 2020-01-24 13:21 | PCCPR ---
Tracey called back today and said that she spoke with Dr Porter's office and they advised her to stay at home for now and will reassess the situation in 2 weeks.
--- NOTE | 2020-01-31 09:31 | PCCPR ---
Program is temporarily suspended due to COVID outbreak.
--- NOTE | 2020-02-07 13:40 | PCCPR ---
Called patient in regards to the temporary closure of our department continuing until at least March 07. Patient is doing well, states shes a little sad/depressed. She states she has not done much exercise, some walking. Encouraged her to get in some home activity daily. Will also help boost her mood. Will mail her our temporary home based exercise booklet. Will continue to follow patient weekly.
--- NOTE | 2020-02-14 11:04 | PCCPR ---
Called today for weekly check in. Tracey stated that she received the exercise guidelines in the mail and is trying to walk every day in 10 min intervals and doing some stretches. Tracey stated that last week she was having some mild pressure under her left breast and spoke with the music researcher and was restarted on Imdur, which she stated has helped.
--- NOTE | 2020-02-20 15:00 | PCCPR ---
Addendum entered by Jenni Samuel RN 02/20/20 15:14: Tracey called back she continues to walk a minimum of 10 min daily still indoors but some days twice daily. States she has the sniffles and is choosing not to go outside for now. Original Note: Unable to reach Tracey on our weekly check in phone call. Left her message inquiring how she is progressing.
--- NOTE | 2020-02-28 13:33 | PCCPR ---
Weekly update call-No questions or concerns at this time.
--- NOTE | 2020-03-06 13:49 | PCCPR ---
Weekly update call-Left message informing patient of continued closure through the month of March due to the extension of the halfway in place order.
--- NOTE | 2020-03-21 12:54 | PCCPR ---
Starting Bi-Weekly calls. Left message for patient.
--- NOTE | 2020-04-04 14:44 | PCCPR ---
Bi-weekly call made today, left message.
== END 2020-01-22 23:59 | disposition home or self-care (01) ==
LOC: ANHCPREHAB 10:00
PROVIDERS: PCP Family Medicine; Visit Provider Nurse Practitioner Adult Health
DX: I25.2 Old myocardial infarction (principal)
CPT/HCPCS: 93798

== ENCOUNTER 2020-06-13 15:32 | Outpatient (CLI) | payer MEDICARE, SELFPAY ==
--- NOTE | ~2020-06-13 | US_ITS ---
EXAMINATION: US carotid duplex BI DATE: 06/13/2020 16:32 INDICATION: Syncope and collapse TECHNIQUE: Grayscale, color Doppler, and pulsed Doppler images of the cervical carotid arteries were obtained. The degree of vessel stenosis is placed in one of the following categories: normal, <50%, 5 0-69%, >=70% but less than near-occlusion, near-occlusion, or total occlusion. Note that percent sten osis relative to normal distal artery lumen diameter is indirectly measured from velocity measurement s as described by Mandeep, et al. Radiology 2003; [id number]:[id number]. COMPARISON: None. FINDINGS: RIGHT: The right common carotid artery (CCA) peak systolic velocity (PSV) is 74 cm/s. The right internal car otid artery (ICA) PSV is 79 cm/s. The right ICA end-diastolic velocity (EDV) is 19 cm/s. The right IC A/CCA PSV ratio is 1.1. Grayscale and color Doppler images yield an estimate of <50% diameter reducti on from minimal plaque in the ICA. The external carotid artery (ECA) PSV is 102 cm/s. There is antegr rukhsana flow in the right vertebral artery. LEFT: The left CCA PSV is 76 cm/s. The left ICA PSV is 77 cm/s. The left ICA EDV is 17 cm/s. The left ICA/C CA PSV ratio is 1.0. Grayscale and color Doppler images yield an estimate of <50% diameter reduction from minimal plaque in the ICA. The ECA PSV is 112 cm/s. There is antegrade flow in the left vertebra l artery. IMPRESSION: 1. <50% stenosis in the right internal carotid artery. 2. <50% stenosis in the left internal carotid artery. Reviewed, dictated and finalized at location A.
== END 2020-06-13 15:33 | disposition home or self-care (01) ==
LOC: ANHIMG 15:33
PROVIDERS: PCP Family Medicine; Visit Provider Family Medicine
DX: R55 Syncope and collapse (principal); I65.23 Occlusion and stenosis of bilateral carotid arteries
CPT/HCPCS: 93880

== ENCOUNTER → 2020-07-09 08:22 | Outpatient (CLI) | payer MEDICARE, SELFPAY ==
--- NOTE | ~2020-07-09 | XR_ITS ---
EXAMINATION: XR pelvis 1-2V INDICATION: Unspecified fall, initial encounter, low back pain TECHNIQUE: AP view the pelvis is obtained. COMPARISON: None available FINDINGS: Bone alignment is normal. There is no fracture. Phleboliths are noted in the pelvis. The so ft tissues are unremarkable. Surgical changes are noted in the lumbar spine. IMPRESSION: 1. No acute osseous abnormality. Reviewed, dictated and finalized at location A.
--- NOTE | ~2020-07-09 | XR_ITS ---
EXAMINATION: XR lumbar spine 2-3V DATE: 07/09/2020 09:02 INDICATION: Low back pain TECHNIQUE: Anteroposterior and lateral views of the lumbar spine, and cone-down lateral view of the l umbosacral junction were obtained. COMPARISON: None. FINDINGS: There are changes of posterior fusion and laminectomy from L3 through L5. There is complete loss of intervertebral disc space height at L3-4 and L4-5. Severe loss of intervertebral disc space height is present at L1-2, L2-3, and L5-S1. There are 3 mm of anterolisthesis of L5 on S1. No fractur e is identified. Small degenerative osteophytes project from the anterior endplates of multiple verte bral bodies. Calcified atherosclerosis is noted. IMPRESSION: 1. Severe lumbar spondylosis without acute findings. Reviewed, dictated and finalized at location A.
== END ==
PROVIDERS: PCP Family Medicine; Visit Provider Family Medicine
DX: M47.896 Other spondylosis, lumbar region (principal)
CPT/HCPCS: 72100; 72170

== ENCOUNTER 2020-07-24 09:00 | Outpatient (RCR) | payer MEDICARE, SELFPAY | END 2020-07-25 10:53 | disposition home or self-care (01) | LOC: ANHCPREHAB 09:00 | PROVIDERS: PCP Family Medicine; Visit Provider Nurse Practitioner Adult Health | DX: I25.2 Old myocardial infarction (principal) | CPT/HCPCS: 93798 ==

== ENCOUNTER → 2020-08-27 15:57 | Outpatient (CLI) | payer MEDICARE, SELFPAY ==
--- NOTE | ~2020-08-27 | MM_ITS ---
EXAMINATION: MM screening jennifer BI w kirit HISTORY: Screening mammogram TECHNIQUE: Craniocaudal and mediolateral oblique 3-D tomosynthesis images were obtained and synthetic 2-D images were generated. CAD analysis was submitted and interpreted. COMPARISON: 02/08/2019, 12/16/2017, 06/11/2015 bilateral digital screening mammogram examinations BREAST PARENCHYMAL COMPOSITION: There are scattered areas of fibroglandular density. FINDINGS: Scattered bilateral benign calcifications are again noted. There is a linear array of subtle microcalcifications in posterior aspect of the lower inner quadrant of the left breast. Magnification views are recommended. Otherwise there is no evidence of suspicious mass, calcification, or architectural distortion to sugg est malignancy in either breast. There has been no suspicious interval change. IMPRESSION: 1. Linear array of subtle microcalcifications in the posterior aspect of the lower inner quadrant of left breast 2. Diagnostic left mammogram with magnification views is recommended BI-RADS Category 0: Incomplete: Needs additional imaging evaluation. Reviewed, dictated and finalized at location A. IMPRESSION: 1. Linear array of subtle microcalcifications in the posterior aspect of the lo wer inner quadrant of left breast 2. Diagnostic left mammogram with magnification views is recommended BI-RADS Category 0: Incomplete: Needs additional imaging evaluation.
== END ==
PROVIDERS: PCP Family Medicine; Visit Provider Family Medicine
DX: Z12.31 Encounter for screening mammogram for malignant neoplasm of breast (principal); R92.8 Other abnormal and inconclusive findings on diagnostic imaging of breast
CPT/HCPCS: 77063; 77067

== ENCOUNTER → 2020-09-12 07:33 | Outpatient (CLI) | payer MEDICARE, SELFPAY ==
--- NOTE | ~2020-09-12 | MM_ITS ---
EXAMINATION: MM diagnostic mammo unilat LT HISTORY: Follow-up left breast calcifications TECHNIQUE: Additional 3-D tomosynthesis images of the left breast were performed and synthetic 2-D im ages were generated. CAD analysis was submitted and interpreted. COMPARISON: Comparison to multiple prior studies sequentially, with oldest reviewed study dated 02/2015. BREAST PARENCHYMAL COMPOSITION: Breast composed of scattered areas of fibroglandular density. FINDINGS: There are smudge-like calcifications in the lower inner quadrant of the left breast posteri maine which are most likely benign. There are no suspicious masses or architectural distortion. IMPRESSION: 1. Probable benign left breast calcifications. 2. Recommend 6 month follow-up diagnostic left mammogram BI-RADS category 3, probably benign findings. Reviewed, dictated and finalized at location A. RUCTIONAL SUPPORT SERVICES DIRECTOR
== END ==
PROVIDERS: PCP Family Medicine; Visit Provider Physician Assistant
DX: R92.8 Other abnormal and inconclusive findings on diagnostic imaging of breast (principal)
CPT/HCPCS: 77065

== ENCOUNTER → 2021-03-17 07:38 | Outpatient (CLI) | payer MEDICARE, SELFPAY ==
--- NOTE | ~2021-03-17 | MM_ITS ---
EXAMINATION: MM diagnostic jennifer LT w kirit HISTORY: Six-month follow-up for probably benign left breast calcifications TECHNIQUE: Additional 3-D tomosynthesis and magnification images of the left breast were performed an d synthetic 2-D images were generated. CAD analysis was submitted and interpreted. COMPARISON: 09/12/2020, 08/27/2020, 02/08/2019, 12/16/2017 BREAST PARENCHYMAL COMPOSITION: The breasts are almost entirely fatty. FINDINGS: There are stable grouped calcifications in the posterior third lower inner breast at 8:00 l ocation 13 cm from the nipple which appear predominantly round in morphology. No suspicious mass or a rchitectural distortion is identified. IMPRESSION: 1. Stable, probably benign left breast calcifications. 2. Recommend 6 month follow-up left diagnostic mammogram. BI-RADS category 3, probably benign findings. Reviewed, dictated and finalized at location A.
== END ==
PROVIDERS: PCP Family Medicine; Visit Provider Family Medicine
DX: R92.8 Other abnormal and inconclusive findings on diagnostic imaging of breast (principal)
CPT/HCPCS: 77061; 77065; G0279

== ENCOUNTER 2021-05-19 07:12 | Outpatient (CLI) | payer MEDICARE, SELFPAY ==
--- NOTE | 2021-06-05 21:18 | WPDHOMESLEEP ---
Sleep Study - Home Unattended Date of Study: 05/19/21 Ordering Provider: Lul Porter MD Interpreting Provider: Shayy Martinez MD Home Sleep Study Type: Apnea Link Air Height: 1.52 m Weight: 99.3 kg Body Mass Index: 42.7 Neck Circumference (inches): 14.5 Clifford: 2 Reason for Sleep Study Pulmonary hypertension, snoring * 02/20/2021 - echocardiogram - EF 70-75%, severe pulmonary hypertension with RVSP 70-75 mmHg, moderate tricuspid regurgitation, moderate to severe mitral regurgitation, mild concentric left ventricular hypertrophy, grade II diastolic dysfunction Sleep History Tracey Beasley is a 75 year old female with a history of snoring. She was referred by Dr Porter for evaluation of sleep issues as her echo showed pulmonary hypertension. She does not awaken from sleep feeling short of breath. She rarely awakens at night with heartburn, belching or coughing. She constantly snores and occasionally this is loud enough that others complain about it. She occasionally has trouble sleeping with a cold. She rarely wakes up gasping for breath at night. She does not sweat excessively at night or notices her heart pounding irregularly night. She rarely falls asleep during the day. She does not fall asleep involuntarily or while driving. She does not have loss of muscle tone was strong emotion. She does not feel paralyzed on waking or falling asleep. She rarely has vivid dreamlike scenes upon awakening or falling asleep. She has never free to go to sleep. She rarely has nightmares. She frequently remembers her dreams. She rarely has racing thoughts. She rarely feels sad, depressed or anxious. She frequently has muscular tension. She does not notice parts her body jerking and she does not kick at night. She does not have crawling or aching feelings in her legs. She rarely has any kind of leg pain during the night. She does not have morning jaw pain. She occasionally grinds her teeth during sleep. She frequently is bothered by pain during the day. She rarely is awakened by pain at night. She constantly wakes up feeling stiff in the morning. She does not wake up with sore or achy muscles. She frequently wakes up with pain in the neck and spine. She has headaches and dizziness. Normal bedtime is 10:30 p.m., falling asleep within 10 to 15 minutes, waking 2 or 3 times at night to use the bathroom, returning to sleep within 10 minutes. She awakens in the morning between 6:30 a.m. and 7:00 a.m.. Her weekend schedule is the same. She estimates getting 8 to 8.5 hours of sleep at night. She does not generally take naps. Naps are not refreshing. She feels better in the afternoon compared to the morning. Habits: Never smoked tobacco. Caffeine: 16 oz a day. No alcohol or recreational drugs. [facility] Past Medical History Medical History Acute coronary syndrome Chronic renal insufficiency, stage III (moderate) Hypertension Lumbar disc disease Mixed hyperlipidemia Myocardial infarction ST elevation DC (STEMI) Type 2 diabetes mellitus without complication, without long-term current use of insulin Vitamin D deficiency Surgical History Surgical History History of total knee replacement Family History Family History Father Cerebrovascular accident Hypercholesteremia Mother Family history of malignant neoplasm of breast in first degree relative Diabetes mellitus Hypertension Hypercholesteremia Sibling Brain aneurysm Kidney failure Hypertension Hypercholesteremia Grandparent Family history of coronary artery disease Social History Social History Second hand tobacco smoke exposure: No Alcohol intake: never Substance use: never Substance use type: does not use Gender identity (if verbalized by the
[2021-06-05 21:50] VITALS: BMI 42.7
== END 2021-05-20 11:33 | disposition home or self-care (01) ==
LOC: ANHCSM 07:14
PROVIDERS: PCP Family Medicine; Visit Provider Internal Medicine Cardiovascular Disease
DX: G47.33 Obstructive sleep apnea (adult) (pediatric) (principal)
CPT/HCPCS: 95806

== ENCOUNTER → 2021-10-21 09:15 | Outpatient (CLI) | payer MEDICARE, SELFPAY ==
--- NOTE | ~2021-10-21 | MM_ITS ---
EXAMINATION: MM diagnostic jennifer BI w kirit HISTORY: Six-month follow-up for probably benign calcifications TECHNIQUE: Craniocaudal, mediolateral, and mediolateral oblique 3-D tomosynthesis images of the breas ts were performed and synthetic 2-D images were generated. Magnification views of the left breast are also obtained. CAD analysis was submitted and interpreted. COMPARISON: 03/17/2021, 09/12/2020, 08/27/2020, 02/08/2019 BREAST PARENCHYMAL COMPOSITION: There are scattered areas of fibroglandular density. FINDINGS: Right breast: Scattered benign-appearing calcifications are present. There is no evidence of suspicio us mass, calcification, or architectural distortion in either breast to suggest malignancy. There phillips s been no suspicious interval change. Left breast: There is stable grouped calcifications in the posterior third of the lower inner breast at the 8:00 location 13.5 cm from the nipple. These again appear to be round in morphology. No suspic ious mass or architectural distortion is identified. IMPRESSION: 1. Stable, probably benign left breast calcifications. 2. Given one year of interval stability, recommend 12 month followup diagnostic mammogram. BI-RADS category 3, probably benign findings. Reviewed, dictated and finalized at location A. TO CHIP SACKING MACHINE OPERATOR
== END ==
PROVIDERS: PCP Family Medicine; Visit Provider Family Medicine
DX: R92.8 Other abnormal and inconclusive findings on diagnostic imaging of breast (principal)
CPT/HCPCS: 77062; 77066; G0279

== ENCOUNTER → 2021-11-06 09:40 | Outpatient (CLI) | payer MEDICARE, SELFPAY ==
--- NOTE | ~2021-11-06 | XR_ITS ---
EXAMINATION: XR hip RT min 2V DATE: 11/06/2021 10:11 INDICATION: Pain in unspecified hip. TECHNIQUE: 2 views of right hip were obtained. COMPARISON: Pelvis radiograph 07/09/2020 FINDINGS: Bone alignment is normal. No fracture. There is mild right hip osteoarthritis. There are ch anges of posterior fusion procedure in lumbar spine. There is severe lumbar spondylosis. IMPRESSION: 1. Mild right hip osteoarthritis. Reviewed, dictated and finalized at location B. SE REFINING SUPERVISOR
== END ==
PROVIDERS: PCP Family Medicine; Visit Provider Family Medicine
DX: M16.11 Unilateral primary osteoarthritis, right hip (principal)
CPT/HCPCS: 73502

== ENCOUNTER 2021-12-04 08:12 | Outpatient (RCR) | payer MEDICARE, SELFPAY ==
[2021-12-04] MEDS: FAMOTIDINE 20 MG TABLET PO (11:34)
[2021-12-04] MEDS: ACETAMINOPHEN 325 MG TABLET 650 MG PO (11:34)
[2021-12-04] MEDS: diphenhydrAMINE HCl CAP 25 MG CAPSULE PO (11:34)
[2021-12-04 11:40] VITALS: BP 155/63; PULSE 65; TEMP 37.1; O2SAT 99
[2021-12-04 13:05] VITALS: PULSE 53; RESP 20; O2SAT 99
== END 2021-12-04 16:00 ==
LOC: AMCINF 08:12
PROVIDERS: PCP Physician Assistant; Visit Provider Internal Medicine Hematology & Oncology
DX: U07.1 COVID-19 (principal)
CPT/HCPCS: A9270; M0247; Q0247

== ENCOUNTER 2022-03-19 10:38 | Outpatient (CLI) | payer MEDICARE, SELFPAY ==
--- NOTE | 2022-03-20 13:03 | WPDPFTINT ---
PFT Procedure Performed PFT Procedure Performed Spirometry with Pre/Post Bronchodilator Plethysmography (Lung Vol) Diffusing Cap (DLCO) Flow Vol Loop PFT Interpretation This is a pulmonary function test with pre and post-bronchodilator spirometry, plethysmography and diffusing capacity. The test was performed and results interpreted in accordance with the 2019 and 2005 ATS/ERS Task Force guidelines respectively using the Global Lung Function Initiative-2012 reference equations. Patient demonstrated good effort and cooperation. Reproducibility criteria were met. The quality of the pre bronchodilator spirometry maneuver was Grade B and post bronchodilator spirometry maneuver was Grade B. Findings: Spirometry: The contour the inspiratory expiratory flow tracing are normal. The pre bronchodilator FVC is 2.57 L, 108% predicted. The pre bronchodilator FEV1 is 2.13 L, 115% predicted. The pre bronchodilator FEV1: FVC ratio was 83%. The post bronchodilator FVC is 2.48 L, representing a 4% decrease. The post bronchodilator FEV1 is 2.10 L, representing 1% decrease. The post bronchodilator FEV1: FVC ratio was 85%. Plethysmography: The total lung capacity is 3.99 L, 87% predicted. The functional residual capacity is 1.60 L, 61% predicted. The residual volume is 1.31 L, 61% predicted. Diffusing capacity: The diffusing capacity unadjusted for hemoglobin and carboxyhemoglobin is 13.2, 71% predicted. The diffusing capacity adjusted for alveolar volume is 3.82, 88% predicted. Impression: The spirometry is normal without evidence of an obstructive abnormality. There is no significant improvement after inhaling a single dose of albuterol. The total lung capacity is normal with a decreased residual volume. This is an abnormal but nonspecific lung volume pattern. The diffusing capacity is normal. Impression: There is a severe obstructive abnormality without significant improvement after inhaling a single dose of albuterol. The increase in residual volume is consistent with air trapping from an obstructive abnormality. Hyperinflation is present is demonstrated by the increase in functional residual capacity and total lung capacity and is consistent with an obstructive abnormality. The diffusing capacity unadjusted for hemoglobin and carboxyhemoglobin is moderately decreased and normalizes when adjusted for alveolar volume. Impression: There is a moderately severe restrictive ventilatory abnormality. The spirometry is normal without evidence of an obstructive abnormality. There is no significant improvement after inhaling a single dose of albuterol. The diffusing capacity unadjusted for hemoglobin and carboxyhemoglobin is moderately decreased and normalizes when adjusted for alveolar volume. There are no prior studies for comparison
== END 2022-03-19 10:39 | disposition home or self-care (01) ==
PROVIDERS: PCP Family Medicine; Visit Provider Family Medicine
DX: R06.81 Apnea, not elsewhere classified (principal); I27.20 Pulmonary hypertension, unspecified
CPT/HCPCS: 94060; 94726; 94729

== ENCOUNTER 2022-03-27 08:09 | Outpatient (CLI) | payer MEDICARE, SELFPAY ==
--- NOTE | ~2022-03-27 | CT_ITS ---
EXAMINATION: CT diagnostic chest wo con DATE: 03/27/2022 09:03 INDICATION: Pulmonary hypertension, unspecified TECHNIQUE: Computed tomography (CT) of the chest was performed without intravenous contrast. The dose -length product (DLP) was 719.29 mGy-cm. Automated exposure control and iterative reconstruction tech [employer] were employed. COMPARISON: None FINDINGS: There is mild dependent atelectasis of the lungs. The lungs are free of focal airspace opac ities. There is a 4 mm nodule of the right middle lobe. There is no pleural effusion or pneumothorax. There is enlargement of the main and central pulmonary arteries, consistent with pulmonary hypertens ion. Calcified coronary artery atherosclerosis is noted. There is dense calcification of the mitral a nnulus. No pathologically enlarged thoracic lymph nodes are identified. The heart size is normal. Pun ctate calcifications in an otherwise normal spleen likely represent healed granulomatous disease. The re is a small sliding hiatal hernia. There is severe thoracic spondylosis. IMPRESSION: 1. CT findings consistent with pulmonary hypertension. Reviewed, dictated and finalized at location A.
== END 2022-03-27 08:10 | disposition home or self-care (01) ==
PROVIDERS: PCP Family Medicine; Visit Provider Family Medicine
DX: I27.20 Pulmonary hypertension, unspecified (principal); J98.4 Other disorders of lung
CPT/HCPCS: 71250

== ENCOUNTER 2022-09-14 00:52 | Day surgery (SDC) | payer MEDICARE, SELFPAY ==
[2022-09-11 13:30] VITALS: BMI 39.7
[2022-09-14] VITALS (12 sets, daily range): BP systolic 102–171; BP diastolic 35–94; PULSE 52–70; RESP 14–152; TEMP 36.6–36.7; O2SAT 93–100; BMI 42.3
--- NOTE | 2022-09-14 08:29 | WPDHPUPDATE1 ---
History and Physical Update Update Date/Time: 09/14/22 08:29 76-year-old female history of CAD mitral and tricuspid regurgitation. She is significant mitral tricuspid regurgitation. JOANNA is recommended for further Objective: Regular rate rhythm. Lungs clear to auscultation. Mild edema. Assessment: Mitral and tricuspid regurgitation Plan T EE History and Physical has been reviewed, including an updated exam of the patient. There are NO changes in the patient's condition. Risks, benefits, and alternatives have been discussed and questions answered. Patient agrees to proceed with procedure.
--- NOTE | 2022-09-14 08:31 | WPDMODSED ---
Moderate Sedation Note-Pt Data Patient Data Diagnosis: Mitral regurgitation Present Complaint: Mitral regurgitation Procedure to be performed/Plan: Multiplanar transesophageal echocardiography with color flow and pulse wave Doppler, agitated saline study Allergies Allergy/AdvReac Type Severity Reaction Status Date / Time Cephalosporins Allergy Severe Rash----KEF Verified 09/14/22 07:35 DYLAN morphine Allergy Severe ITCHEY Verified 09/14/22 07:35 FLUSHED SKIN cephalexin Allergy Unknown Rash Verified 09/14/22 07:35 Sulfa (Sulfonamide Allergy Unknown Rash Verified 09/14/22 07:35 Antibiotics) Home Medications Medication Instructions Recorded Confirmed Type lisinopril 20 mg tablet 40 mg PO DAILY 12/09/19 09/14/22 History aspirin 81 mg tablet,delayed 81 mg PO QAM #30 tabs 12/11/19 09/14/22 Rx release atorvastatin 80 mg tablet 80 mg PO DAILY #30 tabs 12/11/19 09/14/22 Rx metoprolol succinate 50 mg 50 mg PO QAM #30 tabs 12/11/19 09/14/22 Rx tablet,extended release 24 hr pantoprazole 40 mg tablet,delayed 40 mg PO QAM #30 tabs 12/11/19 09/14/22 Rx release cholecalciferol (vitamin D3) 25 1,000 unit PO DAILY 01/16/20 09/14/22 History mcg (1,000 unit) tablet (Vitamin D3) psyllium husk 3.4 gram/5.4 gram 1 tbsp PO DAILY 01/16/20 09/11/22 History oral powder (Metamucil) isosorbide mononitrate 30 mg 30 mg PO DAILY 09/03/20 09/14/22 History tablet,extended release 24 hr hydrochlorothiazide 12.5 mg capsule 12.5 mg PO DAILY 02/20/22 09/14/22 History Sedation/Anesthesia: No previous sedation/anesthesia problems (including family history). [facility] Past Medical History Medical History Acute coronary syndrome Chronic renal insufficiency, stage III (moderate) Hypertension Lumbar disc disease Mixed hyperlipidemia Myocardial infarction Pulmonary hypertension Restrictive airway disease ST elevation [place] (STEMI) Type 2 diabetes mellitus without complication, without long-term current use of insulin Vitamin D deficiency Surgical History Surgical History History of total knee replacement Family History Family History Father Cerebrovascular accident Hypercholesteremia Mother Family history of malignant neoplasm of breast in first degree relative Diabetes mellitus Hypertension Hypercholesteremia Sibling Brain aneurysm Kidney failure Hypertension Hypercholesteremia Grandparent Family history of coronary artery disease Social History Social History Smoking status: Never smoker Second hand tobacco smoke exposure: Yes Alcohol intake: never Substance use: never Substance use type: does not use Living arrangements: with family Gender identity (if verbalized by the patient): Female Spiritual care concerns: No Agree to blood products: Yes Mod Sed Physical Exam Physical Exam Pre Procedural Exam: Normal: Appearance, Eyes, Ears, Nose, Neck, Throat, Airway, Lungs, Heart Size, Heart Rate, Heart Rhythm, Neuro Exam and Skin Hours since solid foods: 12 Hours since liquid intake: 12 Mallampati Classification: class II Internal Medicine - PN: Obj Da Vital Signs Vital Signs: Vital Signs - 24 hr 09/14/22 07:40 Temperature 36.7 C Pulse Rate 63 Respiratory Rate 152 H Blood Pressure 144/75 H Pulse Oximetry 98 Oxygen Delivery Room Air ASA Classification/Sedation ASA Classification/Sedation ASA Class: II Emergent: No Risks: Risks, benefits and alternatives explained and patient/family accepted plan for sedation. Patient re-evaluated immediately prior to sedation.
--- NOTE | 2022-09-14 09:00 | P.PCNTEE_ITS ---
JOANNA TransEsophageal Echocardiogram Date of procedure: 09/14/22 Procedure Type: 1. Multiplanar transesophageal echocardiography with color flow and continuous wave Doppler 2. Agitated saline today 3. Moderate sedation Diagnosis: Mitral regurgitation Indications: Mitral regurgitation Image Quality: Good Findings: After discussing the risks, benefits alternatives of the procedure patient agreeable via verbal and written informed consent. Risks discussed included esophageal rupture perforation, , need for surgery, bleeding pain, infection, sore throat or adverse reaction to anesthesia. After time-out was taken and after confirming that continuous telemetry monitoring, pulse oxygena tion in serial blood pressure assessments were established sedation was initiated. Medications used: Fentanyl 50 mcg IV and 3 mg of Versed IV given in divided dosages Procedure start time 8:40 a.m. Procedure stop time 8:56 a.m. Medications were administered patient was monitored by Moni Koroma RN Complications: None Blood loss: None Findings: Normal left ventricular size and function with ejection fraction around 60%. Severe left atrial enlargement. Mild right atrial enlargement. Normal right ventricular size and function. The aortic valve was sclerotic, trileaflet with trivial aortic insufficiency. Aortic root measures 2.4 cm. Pulmonic valve is normal with mild pulmonic insufficiency. No pericardial effusion. Left atrial appendage grossly does not show any mass or thrombus. Continuous-wave Doppler shows velocities across the tricuspid valve up to 4 m/sec. The mitral valve is thickened. The posterior leaflet is essentially immobile resulting in malcoaptation of the anterior and posterior mitral leaflets. This results in mild anterior leaflet prolapse resulting in significant mitral regurgitation which wraps the left atrium. Significant coandra affect. Mitral regurgitation is estimated in the moderate to severe range. Given the size of the left atrium itself, I am leaning towards the mitral regurgitation being severe. The tricuspid valve also was significant tricuspid regurgitation the moderate to severe category. Atrial septum is intact with out color flow or agitated saline evidence of shunting. Conclusions: 1. Normal left ventricular size and function with ejection fraction around 60% 2. Severe left atrial enlargement 3. Moderate to severe mitral and tricuspid regurgitation. Cause of mitral regurgitation is detailed below but related to immobile posterior leaflet which is thickened and slight prolapse of the anterior leaflet because of the in mild posterior leaflet. 4. Intact atrial septum with negative agitated study 5. Moderate sedation
== END 2022-09-14 10:45 | disposition home or self-care (01) ==
PROVIDERS: PCP Family Medicine; Visit Provider Internal Medicine Cardiovascular Disease
PROC: (CPT 93312; principal; 2022-09-14 08:30)
DX: I34.0 Nonrheumatic mitral (valve) insufficiency (principal); I11.9 Hypertensive heart disease without heart failure; E78.5 Hyperlipidemia, unspecified; K21.9 Gastro-esophageal reflux disease without esophagitis; M19.90 Unspecified osteoarthritis, unspecified site; E66.9 Obesity, unspecified; Z68.41 Body mass index [BMI] 40.0-44.9, adult
CPT/HCPCS: 93312; 93320; 93325; J2250; J3010; J7040

== ENCOUNTER 2022-12-07 02:11 | Day surgery (SDC) | payer MEDICARE, SELFPAY ==
[2022-12-04 13:52] VITALS: BMI 40.1
[2022-12-07] VITALS (22 sets, daily range): BP systolic 97–140; BP diastolic 46–72; PULSE 51–63; RESP 12–18; TEMP 36.8–37.1; O2SAT 96–100; BMI 41.2
[2022-12-07 07:43] LABS: Basophils Percent Auto 0.6 % (0.2-1.2); Eosinophils Absolute Auto 0.2 K/mm3 (0-0.3); Eosinophils Percent Auto 3.4 % (0-4.4); Hematocrit 41.8 % (37.0-47.0); Hemoglobin 13.5 g/dL (12.0-15.0); Immature Granulocyte Absolute 0.04 K/mm3 (0.00-0.031); Immature Granulocyte Percent A 0.6 % (0-0.5); Lymphocytes Absolute Auto 2.48 K/mm3 (0.9-3.2); Lymphocytes Percent Auto 36.4 % (18.3-44.2); Mean Corpuscular HGB Conc 32.3 g/dl (32-36); Mean Corpuscular Volume 86.7 fl (80-100); Mean Platelet Volume 10.4 fl (7.4-10.4); Monocytes Absolute Auto 0.7 K/mm3 (0.1-0.6); Monocytes Percent Auto 9.5 % (2.6-8.5); Neutrophils Absolute Auto 3.4 K/mm3 (1.3-6.7); Neutrophils Percent Auto 49.5 % (45.5-73.1); Platelet Count Result 212 k/mm3 (150-375); Red Blood Count 4.82 M/mm3 (4.2-5.4); Red Cell Distribution Width 14.8 % (11.5-14.5); White Blood Count 6.8 K/mm3 (4.5-10.0)
[2022-12-07 07:56] LABS: Anion Gap 8 mmol/L (8-16); Blood Urea Nitrogen 22 mg/dL (7-17); Calcium 8.4 mg/dL (8.4-10.2); Carbon Dioxide 26 mmol/L (22-30); Chloride 104 mmol/L (98-107); Estimated CRCL calculation 63 ml/min; Estimated Glomerular Filt Rate > 60; Glucose 120 mg/dL (65-110); Potassium 3.6 mmol/L (3.4-5.0); Sodium 138 mmol/L (137-145)
--- NOTE | 2022-12-07 08:29 | WPDMODSED ---
Moderate Sedation Note-Pt Data Patient Data Diagnosis: Mitral and tricuspid valve regurgitation coronary artery disease with previous non ST elevation OR Present Complaint: shortness of breath Procedure to be performed/Plan: right and left heart catheterization Allergies Allergy/AdvReac Type Severity Reaction Status Date / Time Cephalosporins Allergy Severe Rash----KEF Verified 12/07/22 07:29 DYLAN morphine Allergy Severe ITCHEY Verified 12/07/22 07:29 FLUSHED SKIN cephalexin Allergy Unknown Rash Verified 12/07/22 07:29 Sulfa (Sulfonamide Allergy Unknown Rash Verified 12/07/22 07:29 Antibiotics) Home Medications Medication Instructions Recorded Confirmed Type lisinopril 20 mg tablet 40 mg PO DAILY 12/09/19 12/04/22 History aspirin 81 mg tablet,delayed 81 mg PO QAM #30 tabs 12/11/19 12/04/22 Rx release atorvastatin 80 mg tablet 80 mg PO DAILY #30 tabs 12/11/19 12/04/22 Rx metoprolol succinate 50 mg 50 mg PO QAM #30 tabs 12/11/19 12/04/22 Rx tablet,extended release 24 hr pantoprazole 40 mg tablet,delayed 40 mg PO QAM #30 tabs 12/11/19 12/04/22 Rx release cholecalciferol (vitamin D3) 25 1,000 unit PO DAILY 01/16/20 12/04/22 History mcg (1,000 unit) tablet (Vitamin D3) psyllium husk 3.4 gram/5.4 gram 1 tbsp PO DAILY 01/16/20 12/04/22 History oral powder (Metamucil) isosorbide mononitrate 30 mg 30 mg PO DAILY 09/03/20 12/04/22 History tablet,extended release 24 hr hydrochlorothiazide 12.5 mg capsule 12.5 mg PO DAILY 02/20/22 12/04/22 History dextromethorphan-guaifenesin 30 1 tablet PO HS 12/04/22 12/04/22 History mg-600 mg tablet extended [id number] hr (Mucinex DM) Current Medications: Active Medications Sodium Chloride (Normal Saline Iv) 500 mls @ 100 mls/hr IV CONT .Q5H NATHALIA Sedation/Anesthesia: No previous sedation/anesthesia problems (including family history). [facility] Past Medical History Medical History Acute coronary syndrome Chronic renal insufficiency, stage III (moderate) Hypertension Lumbar disc disease Mixed hyperlipidemia Myocardial infarction Pulmonary hypertension Restrictive airway disease ST elevation [place] (STEMI) Type 2 diabetes mellitus without complication, without long-term current use of insulin Vitamin D deficiency Surgical History Surgical History History of total knee replacement Family History Family History Father Cerebrovascular accident Hypercholesteremia Mother Family history of malignant neoplasm of breast in first degree relative Diabetes mellitus Hypertension Hypercholesteremia Sibling Brain aneurysm Kidney failure Hypertension Hypercholesteremia Grandparent Family history of coronary artery disease Social History Social History Smoking status: Never smoker Second hand tobacco smoke exposure: Yes Alcohol intake: never Substance use: never Substance use type: does not use Living arrangements: with family Gender identity (if verbalized by the patient): Female Spiritual care concerns: No Agree to blood products: Yes Mod Sed Physical Exam Physical Exam Pre Procedural Exam: Normal: Neck, Throat, Airway, Lungs, Heart Size, Heart Rate, Heart Rhythm, Neuro Exam and Extremities and Variation: Appearance ( pleasant obese white female no apparent distress) Hours since solid foods: 12 Hours since liquid intake: 12 Mallampati Classification: class III Internal Medicine - PN: Obj Da Vital Signs Vital Signs: Vital Signs - 24 hr 12/07/22 07:33 Temperature 36.8 C Pulse Rate 63 Respiratory Rate 12 Blood Pressure 140/59 L Pulse Oximetry 98 Oxygen Delivery Room Air Meds/Results Medications: Active Medications Generic Name Dose Route Start Last Admin Tra
--- NOTE | 2022-12-07 09:17 | WPDCARDPROC ---
Cardiac Cath Procedure Note Date of procedure:: 12/07/22 Performing physician:: Paulo Morse MD Indication:: Mitral valve regurgitation /tricuspid valve regurgitation Brief clinical history:: this is a 77-year-old woman who appears to have history of coronary disease with previous IN due to occlusion of a distal OM branch of the circumflex. She is been found to have significant mitral and tricuspid valve regurgitation and is being evaluated as a candidate for surgical intervention. Admitted today electively for right and left heart catheterization Procedure Procedure performed:: right heart catheterization left heart catheterization Sedation/Medication given:: fentanyl 50 mg Versed 2 mg case start time 8:44 a.m. case end time 9:13 a.m. sedation provided by Shannan Galindo RN, trained observer Access site:: right femoral artery, right femoral vein Estimated blood loss:: 25 cc Procedure note:: patient was brought to the cardiac catheterization lab in the postabsorptive state where the right femoral triangle was prepared and draped in the normal sterile fashion. Anesthesia was provided with 1% lidocaine infiltrated locally. Using the modified Seldinger technique the femoral artery was punctured and a 6 Iraqi vascular sheath was placed. Following this the femoral vein was punctured and a 7 Iraqi vascular sheath was placed. I then used a balloon tip Meeker-Candido catheter to perform right heart catheterization demonstrating and recording right heart pressures, thermodilution cardiac outputs and sampling av O2 difference. The Meeker-Candido catheter was then withdrawn. Following this a 5 Iraqi angled pigtail catheter was used to measure and document left-sided hemodynamics, pullback pressures across the aortic valve and to inject left ventriculography in the 30 degree GREER projection. Following this the left coronary artery was engaged and injected using a 5 Iraqi FL4 catheter. The right coronary was engaged and injected using a 5 Iraqi JR4 catheter. Following this the case was terminated an angiogram was performed to the femoral artery through the sheath after which it was elected to have the sheath removed with direct manual compression. Patient tolerated procedure well there were no apparent complications. There was no sign of groin hematoma upon her leaving the cardiac catheterization lab. Findings:: Hemodynamics: Mean right atrial pressure is 7 mmHg, right ventricle 58 over to end-diastolic 8 , pulmonary artery pressure 57/16, Pulmonary capillary wedge pressure 23 mmHg V-wave to 27 central aortic pressure 124 over 58 left ventricle 124/5 end-diastolic pressure 18. Thermodilution and Reilly cardiac output both measure 3.7 liters/minute giving an index of 1.9. Left ventricle: The left ventricle is of normal dimension and contract in a hyperdynamic fashion. The ejection fraction is 75-80%. The mitral valve annulus is heavily calcified. Angiographic evidence of MR is modest. The left main coronary artery is nicely patent. The left anterior descending is a medium caliber vessel extending down to around the apex. The LAD and its branches are smooth and angiographically normal in appearance. The circumflex is a moderate caliber artery giving rise to 3 marginal branches. All 3 of these marginal branches are remarkably tortuous but without evidence of significant atherosclerotic disease. The right coronary artery is moderate to large in caliber dominant to the posterior circulation. There is no significant atherosclerosis in the trunk of the RCA the RPDA looks normal. There is a high-grade stenosis in the distal aspect of the RPL branch which is exceedingly small to less than 1 mm at the site of that lesion. Conclusion:: 1. Right coronary dominant circulation with no angiographically significant coronary disease save for a high-grade stenosis in a very terminal portion of the RPL branch as described above.
== END 2022-12-07 17:32 | disposition home or self-care (01) ==
PROVIDERS: PCP Family Medicine; Visit Provider Specialist
PROC: 4A023N8 Measurement of Cardiac Sampling and Pressure, Bilateral, Percutaneous Approach (ICD-10-PCS; CPT 93453; principal; 2022-12-07 08:30)
DX: I34.0 Nonrheumatic mitral (valve) insufficiency (principal); I36.1 Nonrheumatic tricuspid (valve) insufficiency; I27.20 Pulmonary hypertension, unspecified; I25.10 Atherosclerotic heart disease of native coronary artery without angina pectoris; I25.2 Old myocardial infarction; R06.02 Shortness of breath; I12.9 Hypertensive chronic kidney disease with stage 1 through stage 4 chronic kidney disease, or unspecified chronic kidney disease; E11.22 Type 2 diabetes mellitus with diabetic chronic kidney disease; N18.30 Chronic kidney disease, stage 3 unspecified; E78.2 Mixed hyperlipidemia; E55.9 Vitamin D deficiency, unspecified; Z79.82 Long term (current) use of aspirin
CPT/HCPCS: 36415; 80048; 85025; 93460; C1887; C1894; J1644; J2250; J3010; J7040

== ENCOUNTER → 2023-04-22 11:22 | Outpatient (CLI) | payer MEDICARE, SELFPAY ==
--- NOTE | ~2023-04-22 | MM_ITS ---
EXAMINATION: MM screening [facility] BI w kirit HISTORY: Screening mammogram TECHNIQUE: Craniocaudal and mediolateral oblique 3-D tomosynthesis images were obtained and synthetic 2-D images were generated. CAD analysis was submitted and interpreted. COMPARISON: 10/21/2021 diagnostic bilateral mammogram 03/17/2021 diagnostic left mammogram 09/12/2020 diagnostic left mammogram 08/27/2020, 02/08/2019 bilateral screening mammogram examinations BREAST PARENCHYMAL COMPOSITION: There are scattered areas of fibroglandular density. FINDINGS: Scattered bilateral benign calcifications are again noted. There is no evidence of suspicio us mass, calcification, or architectural distortion to suggest malignancy in either breast. There has been no suspicious interval change. IMPRESSION: 1. No mammographic evidence of malignancy. 2. Recommend routine screening mammography in one year. BI-RADS Category 2: Benign finding(s). Reviewed, dictated and finalized at location A.
== END ==
PROVIDERS: PCP Family Medicine; Visit Provider Family Medicine
DX: Z12.31 Encounter for screening mammogram for malignant neoplasm of breast (principal)
CPT/HCPCS: 77063; 77067

== ENCOUNTER 2024-08-31 09:33 | Outpatient (CLI) | payer MEDICARE, SELFPAY ==
--- NOTE | ~2024-08-31 | MM_ITS ---
EXAMINATION: MM screening [facility] BI w kirit HISTORY: Screening TECHNIQUE: Craniocaudal and mediolateral oblique 3-D tomosynthesis images were obtained and synthetic 2-D images were generated. CAD analysis was submitted and interpreted. COMPARISON: Comparison to multiple prior studies sequentially, with oldest reviewed study dated 01/2019. BREAST PARENCHYMAL COMPOSITION: Not Dense: The breasts are almost entirely fatty. FINDINGS: There is no evidence of suspicious mass, calcification, or architectural distortion to sugg est malignancy in either breast. There has been no suspicious interval change. IMPRESSION: 1. No mammographic evidence of malignancy. 2. Recommend routine screening mammography in one year. BI-RADS Category 1: Negative Reviewed, dictated and finalized at location B.
== END 2024-08-31 09:34 | disposition home or self-care (01) ==
LOC: MICIMG 09:35
PROVIDERS: PCP Family Medicine; Visit Provider Family Medicine
DX: Z12.31 Encounter for screening mammogram for malignant neoplasm of breast (principal)
CPT/HCPCS: 77063; 77067

== ENCOUNTER 2025-06-08 08:31 | Outpatient (CLI) | payer MEDICARE, SELFPAY ==
--- NOTE | ~2025-06-08 | DEXA_ITS ---
Bone Density Report Name: SUNITHA CUELLAR Age: 79 Sex: Female Ethnicity: White Date of : 1945 Indication: postmenopausal; screening for osteoporosis; height loss; Referring Provider: SARAH SALAZAR Study: Bone densitometry was performed. Exam Date: June 08, 2025 Accession number: [id number] Bone Density: Region BMD T-score Z-score Classification AP Spine(L1, L2) 1.271 2.7 5.1 Normal Femoral Neck (Left) 0.839 -0.1 2.2 Normal Total Hip (Left) 1.075 1.1 3.1 Normal Femoral Neck (Right) 0.894 0.4 2.7 Normal Total Hip (Right) 1.053 0.9 2.9 Normal Total Hip Mean 1.064 1.0 3.0 Normal World Health Organization criteria for BMD impression classify patients as: Normal (T-score at or above -1.0), Osteopenia (T-score between -1.0 and -2.5), or Osteoporosis (T-score at or below -2.5). 10-year Fracture Risk: FRAX not reported because: All T-scores for Spine Total, Hip Total, Femoral Neck at or above -1.0 Previous Exams: -- Region Exam Age BMD T-score BMD Change BMD Change Date g/cm2 vs Baseline vs Previous -- AP Spine (L1-L2) 06/08/2025 79 1.271 2.7 13.9%# 13.9%# 06/11/2015 69 1.116 1.2 Total Hip(Left) 06/08/2025 79 1.075 1.1 -1.2%# -1.2%# 06/11/2015 69 1.089 1.2 Total Hip(Right) 06/08/2025 79 1.053 0.9 -4.4%# -4.4%# 06/11/2015 69 1.102 1.3 -- *Denotes significance at 95% confidence level, LSC for AP Spine = 0.022 g/cm2, LSC for Total Hip = 0.027 g/cm2 # Denotes dissimilar scan types or analysis methods Clinical Information Provided by Patient: Has used the following medications: Vitamin D Patient maximum height was 62 Menopause Age: 45 No regular weight bearing exercise Drinks caffeinated beverages Onset of menses at age 12 Number of children 2 Impression: The patient has normal bone mass. Unable to evaluate interval change due to the use of different scan modes. Discussion: LOW RISK OF FRACTURE; BONE DENSITY IS WELL ABOVE THE MINIMUM DESIRABLE LEVEL AND ABOVE AVERAGE FOR AGE AND SEX AT ALL SKELETAL SITES TESTED. This person's bone density is above expected limits for age and sex. This is rarely clinically significant, but should be pursued if there are significant musculoskeletal complaints. The patient should follow a healthful lifestyle (good nutrition with adequate calcium and vitamin D, and appropriate weight-bearing exercise). Follow-Up: Consider repeating this study in 5 years or sooner if there is some new clinical indication. Reported by: HOOD on 06/08/2025 9:01:00 AM. Reviewed, dictated and finalized at location A.
== END 2025-06-08 08:32 | disposition home or self-care (01) ==
LOC: MICIMG 08:32
PROVIDERS: PCP Family Medicine; Visit Provider Family Medicine
DX: Z13.820 Encounter for screening for osteoporosis (principal); Z78.0 Asymptomatic menopausal state
CPT/HCPCS: 77080

== ENCOUNTER 2025-09-03 11:24 | Outpatient (CLI) | payer MEDICARE, SELFPAY ==
--- NOTE | ~2025-09-03 | MM_ITS ---
EXAMINATION: MM screening [facility] BI w kirit HISTORY: Screening TECHNIQUE: Craniocaudal and mediolateral oblique 3-D tomosynthesis images were obtained and synthetic 2-D images were generated. CAD analysis was submitted and interpreted. COMPARISON: Comparison to multiple prior studies sequentially, with oldest reviewed study dated 08/27/2020. BREAST PARENCHYMAL COMPOSITION: Not dense: There are scattered areas of fibroglandular density. FINDINGS: There is no evidence of suspicious mass, calcification, or architectural distortion to suggest malignancy in either breast. There has been no suspicious interval change. IMPRESSION: 1. No mammographic evidence of malignancy. 2. Recommend routine screening mammography in one year. BI-RADS Category 1: Negative Reviewed, dictated and finalized at location B.
== END 2025-09-03 11:25 | disposition home or self-care (01) ==
LOC: MICIMG 11:28
PROVIDERS: Visit Provider Family Medicine
DX: Z12.31 Encounter for screening mammogram for malignant neoplasm of breast (principal)
CPT/HCPCS: 77063; 77067